=== PATIENT | female | born 1990 | race Caucasian/White ===

== ENCOUNTER 2016-09-02 16:58 | Emergency (ER) | payer OTHER ==
[~2016-09-02] VITALS: Ht 170.2 cm; Wt 63.5 kg
[~2016-09-02 16:58] MED LIST: NORCO 5-325 TA1 EACH PO; ONDANSETRON HCL4 M2 PO; ZOFRAN ODT8 MG PO
[2016-09-02] MEDS ORDERED: WELLBUTRIN XL150 MG PO (17:54)
[2016-09-02] MEDS ORDERED: AMITRIPTYLINE H25 M2 PO (17:54)
[2016-09-02 17:57] LABS: URINE WBC-REFLEX 6-15 Few /HPF (0-5)
[2016-09-02 17:58] LABS: ICTOTEST (BILI CONFIRMATORY) Negative (Negative)
[2016-09-02 17:59] LABS: CASTS None Seen /LPF (None Seen); SSA (PROTEIN CONFIRMATORY) NEGATIVE (Negative)
[2016-09-02 18:00] LABS: CRYSTALS None Seen /LPF (None Seen); URINE COLOR DK ORANGE
[2016-09-02 18:11] LABS: HEMATOCRIT 41.7 % (37.0-47.0); MCH 29.4 pg (26.0-34.0); MCHC 33.7 g/dL (28.0-37.0); MCV 87.3 fL (80.0-100.0); PLATELET COUNT 200 thou/uL (150-400); RBC 4.78 mil/uL (4.20-5.00); RDW 13.3 % (10.5-14.5)
[2016-09-02 18:12] LABS: MANUAL DIFF YES
[2016-09-02 18:21] LABS: CALCIUM 9.3 mg/dL (8.5-10.1); CREATININE 1.2 mg/dL (0.6-1.0); POTASSIUM 3.1 mmol/L (3.5-5.1)
[2016-09-02 18:28] LABS: ALBUMIN 4.2 g/dL (3.4-5.0); TOTAL BILIRUBIN 0.5 mg/dL (<0.1-1.0); TOTAL PROTEIN 9.1 g/dL (6.4-8.2)
[2016-09-02 18:33] LABS: ABSOLUTE NEUTROPHILS 11.2 thou/uL (1.4-8.2); ATYPICAL LYMPHS 1 %; MYELOCYTES 1 %; TOTAL CELL COUNT 100
[2016-09-02 18:34] LABS: LARGE PLATELETS OCCASIONAL
[2016-09-02] MEDS ORDERED: ZOFRAN ODT4 M1 PO (19:04)
[2016-09-02] MEDS ORDERED: KEFLEX500 MG PO (19:04)
[2016-09-02] MEDS ORDERED: NORCO 5-325 TA1 EACH PO (19:22)
[2016-09-02 19:38] VITALS: BP 121/78
== END 2016-09-02 19:45 | disposition home or self-care (01) ==
LOC: ER 16:58
PROVIDERS: Physician Assistant
DX: N12 Tubulo-interstitial nephritis, not specified as acute or chronic (principal); D72.829 Elevated white blood cell count, unspecified; J45.909 Unspecified asthma, uncomplicated; F10.99 Alcohol use, unspecified with unspecified alcohol-induced disorder; Z90.49 Acquired absence of other specified parts of digestive tract

== ENCOUNTER 2017-05-06 13:36 | Emergency (ER) | payer BC ==
[~2017-05-06] VITALS: Ht 170.2 cm; Wt 68.0 kg
[~2017-05-06 13:36] MED LIST changes: +AMITRIPTYLINE H25 M2 PO; +KEFLEX500 MG PO; +WELLBUTRIN XL150 MG PO; +ZOFRAN ODT4 M1 PO
[2017-05-06] MEDS ORDERED: MONISTAT 11 EACH VAG (13:49)
[2017-05-06 14:01] LABS: URINE BILIRUBIN NEGATIVE (Negative); URINE BLOOD NEGATIVE (Negative); URINE CLARITY CLEAR; URINE COLOR YELLOW; URINE GLUCOSE-RANDOM* NEGATIVE (Negative); URINE KETONES NEGATIVE (Negative); URINE LEUKOCYTES NEGATIVE (Negative); URINE NITRITE NEGATIVE (Negative); URINE PROTEIN (DIPSTICK) TRACE (Negative); URINE UROBILINOGEN 0.2 E.U./dl (0.2-1.0)
[2017-05-06 14:10] LABS: ABSOLUTE NEUTROPHILS 11.2 thou/uL (1.4-8.2); BASOPHILS 0.2 % (0.0-2.0); EOSINOPHILS 0.4 % (0.0-3.0); HEMATOCRIT 43.8 % (37.0-47.0); HEMOGLOBIN 14.4 gm/dL (12.0-15.0); LYMPHOCYTES 9.7 % (24.0-44.0); MCHC 32.7 g/dL (28.0-37.0); MCV 88.4 fL (80.0-100.0); MONOCYTES 4.1 % (1.0-8.0); PLATELET COUNT 226 thou/uL (150-400); POLYS 85.6 % (36.0-66.0); RBC 4.96 mil/uL (4.20-5.00); RDW 13.2 % (10.5-14.5); WBC 13.1 thou/uL (4.0-11.0)
[2017-05-06 14:18] LABS: ANION GAP 8 mmol/L (7-16); BUN 9 mg/dL (7-18); CALCIUM 9.4 mg/dL (8.5-10.1); CHLORIDE 104 mmol/L (98-107); CO2 26 mmol/L (21-32); CREATININE 0.7 mg/dL (0.6-1.0); GLUCOSE 90 mg/dL (74-106); POTASSIUM 4.4 mmol/L (3.5-5.1); SODIUM 138 mmol/L (136-145)
[2017-05-06 14:24] LABS: ALBUMIN 4.3 g/dL (3.4-5.0); DIRECT BILIRUBIN < 0.1 mg/dL (<0.1-0.3); LIPASE 123 U/L (73-393); SGOT 23 U/L (15-37); SGPT 20 U/L (30-65); TOTAL BILIRUBIN 0.4 mg/dL (<0.1-1.0); TOTAL PROTEIN 8.2 g/dL (6.4-8.2)
[2017-05-06 14:31] LABS: LARGE PLATELETS RARE
[2017-05-06] MEDS ORDERED: ZOFRAN ODT4 MG PO (14:51)
[2017-05-06] MEDS ORDERED: PHENERGAN 25 MG25 M1 PO (14:51)
[2017-05-06 16:24] VITALS: BP 109/74
== END 2017-05-06 16:25 | disposition home or self-care (01) ==
LOC: ER 13:36
PROVIDERS: Emergency Medicine
DX: R11.2 Nausea with vomiting, unspecified (principal); G43.909 Migraine, unspecified, not intractable, without status migrainosus; J45.909 Unspecified asthma, uncomplicated; Z90.49 Acquired absence of other specified parts of digestive tract

== ENCOUNTER 2017-07-11 22:28 | Emergency (ER) | payer BC ==
[~2017-07-11] VITALS: Ht 170.2 cm; Wt 68.0 kg
--- NOTE | ~2017-07-11 | EKG ---
[address] [address] ELECTROCARDIOGRAM REPORT Name: RENETTA SAM Room #: [facility]#: [id number] Admission: 07/11/17 Attend Phys: Discharge: 07/12/17 Date of : 89 Report #: [id number] THIS REPORT FOR: //name// [facility] ED Test Date: 2017-07-11 Test Time: 23:25:17 Pat Name: RENETTA SAM Department: Room: Gender: F Billing Spec: KKODJOVI : 1990 Requested By: Christoph Cason Order Number: [id number] MD: John Linton Measurements Intervals [place] Rate: 86 P: 15 NH: 110 QRS: 42 QRSD: 88 T: 14 QT: 377 QTc: 451 Interpretive Statements Sinus rhythm Borderline short NH interval No previous ECG available for comparison Electronically Signed On 07-12-2017 7:38:40 CDT by John Linton [email or web address] <ELECTRONICALLY SIGNED> By: John Linton MD, [facility] 07/12/17 0738 2325 2325 John Linton MD, FACC /EPI
[~2017-07-11 22:28] MED LIST changes: +MONISTAT 11 EACH VAG; +PHENERGAN 25 MG25 M1 PO; +ZOFRAN ODT4 MG PO
[2017-07-11] MEDS ORDERED: CELEXA10 MG PO (22:46)
[2017-07-11 23:26] LABS: ABSOLUTE NEUTROPHILS 4.1 thou/uL (1.4-8.2); BASOPHILS 0.9 % (0.0-2.0); EOSINOPHILS 0.6 % (0.0-3.0); HEMOGLOBIN 13.3 gm/dL (12.0-15.0); LYMPHOCYTES 25.3 % (24.0-44.0); MCH 29.1 pg (26.0-34.0); MCHC 33.3 g/dL (28.0-37.0); MCV 87.5 fL (80.0-100.0); MONOCYTES 8.9 % (1.0-8.0); PLATELET COUNT 230 thou/uL (150-400); POLYS 64.3 % (36.0-66.0); RBC 4.57 mil/uL (4.20-5.00); RDW 13.1 % (10.5-14.5); WBC 6.4 thou/uL (4.0-11.0)
[2017-07-11 23:27] LABS: URINE BILIRUBIN 1+ (Negative); URINE BLOOD NEGATIVE (Negative); URINE CLARITY CLEAR; URINE COLOR YELLOW; URINE GLUCOSE-RANDOM* NEGATIVE (Negative); URINE KETONES 1+ (Negative); URINE LEUKOCYTES-REFLEX NEGATIVE (Negative); URINE NITRITE-REFLEX NEGATIVE (Negative); URINE PROTEIN (DIPSTICK) TRACE (Negative); URINE SPECIFIC GRAVITY >= 1.030 (1.005-1.035)
[2017-07-11 23:29] LABS: ANION GAP 10 mmol/L (7-16); BUN 13 mg/dL (7-18); CHLORIDE 102 mmol/L (98-107); CO2 28 mmol/L (21-32); CREATININE 0.8 mg/dL (0.6-1.0); GLUCOSE 95 mg/dL (74-106); POTASSIUM 3.6 mmol/L (3.5-5.1); SODIUM 140 mmol/L (136-145)
[2017-07-11 23:30] LABS: ICTOTEST (BILI CONFIRMATORY) Positive (Negative)
[2017-07-11 23:37] LABS: ALBUMIN 4.3 g/dL (3.4-5.0); LIPASE 122 U/L (73-393); SGOT 17 U/L (15-37); SGPT 19 U/L (30-65); TOTAL BILIRUBIN 0.7 mg/dL (<0.1-1.0); TOTAL PROTEIN 7.8 g/dL (6.4-8.2); TROPONIN-I < 0.04 ng/mL (<0.06)
[2017-07-12] MEDS ORDERED: NAPROSYN500 MG PO (02:22)
[2017-07-12 02:58] VITALS: BP 99/60
[2017-07-13 14:12] LABS: NEISSERIA GONORRHEA-PCR Negative (Negative)
== END 2017-07-12 02:57 | disposition home or self-care (01) ==
LOC: ER 22:28
PROVIDERS: Emergency Medicine
DX: R10.30 Lower abdominal pain, unspecified (principal); J45.909 Unspecified asthma, uncomplicated; Z90.49 Acquired absence of other specified parts of digestive tract

== ENCOUNTER 2017-07-22 10:42 | Emergency (ER) | payer BC ==
[~2017-07-22] VITALS: Ht 170.2 cm; Wt 74.4 kg
[~2017-07-22 10:42] MED LIST changes: +CELEXA10 MG PO; +NAPROSYN500 MG PO
[2017-07-22 11:16] LABS: URINE BILIRUBIN NEGATIVE (Negative); URINE BLOOD NEGATIVE (Negative); URINE CLARITY CLEAR; URINE COLOR YELLOW; URINE GLUCOSE-RANDOM* NEGATIVE (Negative); URINE KETONES NEGATIVE (Negative); URINE LEUKOCYTES-REFLEX TRACE (Negative); URINE NITRITE-REFLEX NEGATIVE (Negative); URINE PROTEIN (DIPSTICK) NEGATIVE (Negative); URINE SPECIFIC GRAVITY >= 1.030 (1.005-1.035); URINE UROBILINOGEN 0.2 E.U./dl (0.2-1.0)
[2017-07-22 12:13] LABS: HEMATOCRIT 40.3 % (37.0-47.0); HEMOGLOBIN 13.5 gm/dL (12.0-15.0); MCH 29.5 pg (26.0-34.0); MCHC 33.4 g/dL (28.0-37.0); MCV 88.3 fL (80.0-100.0); PLATELET COUNT 206 thou/uL (150-400); RBC 4.57 mil/uL (4.20-5.00); RDW 13.4 % (10.5-14.5); WBC 6.7 thou/uL (4.0-11.0)
[2017-07-22 12:15] LABS: AMP/METHAMP Negative (Negative); BARBITURATES Negative (Negative); BENZODIAZEPINES Negative (Negative); COCAINE Negative (Negative); METHADONE Negative (Negative); OPIATES Negative (Negative); PCP Negative (Negative)
[2017-07-22 12:22] LABS: CALCIUM 8.8 mg/dL (8.5-10.1); CREATININE 0.8 mg/dL (0.6-1.0); POTASSIUM 3.7 mmol/L (3.5-5.1)
[2017-07-22 12:28] LABS: ALBUMIN 4.2 g/dL (3.4-5.0); TOTAL BILIRUBIN 0.4 mg/dL (<0.1-1.0)
[2017-07-22 13:33] LABS: ABSOLUTE NEUTROPHILS 4.2 thou/uL (1.4-8.2)
[2017-07-22 20:50] VITALS: BP 117/65
== END 2017-07-22 20:50 | disposition short-term general hospital (02) ==
LOC: ER 10:42
PROVIDERS: Nurse Practitioner Family
DX: R45.851 Suicidal ideations (principal); R10.9 Unspecified abdominal pain; R19.7 Diarrhea, unspecified; R11.2 Nausea with vomiting, unspecified; J45.909 Unspecified asthma, uncomplicated; Z90.49 Acquired absence of other specified parts of digestive tract

== ENCOUNTER 2017-08-30 12:23 | Emergency (ER) | payer BC ==
[~2017-08-30] VITALS: Ht 170.2 cm; Wt 72.6 kg
[2017-08-30] MEDS ORDERED: SERTRALINE HCL50 MG PO (13:05)
[2017-08-30] MEDS ORDERED: LOESTRIN1 EAC1 PO (13:05)
[2017-08-30] MEDS ORDERED: CLONAZEPAM 1 MG1 M1 PO (13:06)
[2017-08-30] MEDS ORDERED: PROPRANOLOL 1010 MG PO (13:06)
[2017-08-30 14:56] VITALS: BP 105/66
== END 2017-08-30 14:57 | disposition home or self-care (01) ==
LOC: ER 12:23
DX: S09.90XA Unspecified injury of head, initial encounter (principal); J45.909 Unspecified asthma, uncomplicated; Z90.49 Acquired absence of other specified parts of digestive tract; Z91.02 Food additives allergy status; V89.2XXA Person injured in unspecified motor-vehicle accident, traffic, initial encounter; Y93.89 Activity, other specified; Y92.89 Other specified places as the place of occurrence of the external cause; Y99.8 Other external cause status